=== PATIENT | male | born 1935 | race Caucasian/White ===

== ENCOUNTER 2016-06-21 11:26 | Emergency (ER) | payer MEDICARE ==
[2016-06-21] VITALS (7 sets, daily range): BP systolic 16–139; BP diastolic 53–78; PULSE 81–110; RESP 16–24; O2SAT 89–98
--- NOTE | 2016-06-21 11:32 | ED.REPORT ---
HPI-Dyspnea / Wheezing Date of Service Jun 21, 2016 ED Provider: Christina Cas Patient is a 81 year old male on Warfarin who presents to the ED complaining of increased trouble breathing onset last night. He has a sinus mass but reports that he has had increased trouble breathing through his mouth in addition to his nose. Associated symptoms include feeling flushed, sinus pressure, sinus drainage, and facial pain. He denies cough, chest pain, abdominal pain, or any other symptoms. He was seen in the ED 3 days ago for vertigo. Nursing Notes Stated Complaint: SOB Chief Complaint: Respiratory Complaints Nursing Notes Reviewed: Yes Allergies: Coded Allergies: hydrocodone (Verified Adverse Reaction, Severe, vomiting, 06/21/16) General Time Seen by MD: 11:32 Chief Complaint Shortness of breath Hx Obtained From: Patient Arrived By: Walk-in Onset Occurred: Yesterday Symptom Duration: Since onset Recent Healthcare: Recent doctor visit Past Medical History Past Medical History Notes: [facility]- ENT Past Medical History AAA (he reports stable yearly CT) Nuclear senile cataract Presbyopia IFG Coronary atherosclerosis of unspecified vessel Reports: Hyperlipidemia, Hypertension Reports: Atrial fibrillation Past Surgical History Aortic valve replacement Left inferior parathyroidectomy Hernia repair R hip Smoking History Never Smoker Social History Alcohol Use: Denies alcohol use Drug Use: Denies drug use Ambulatory Status Independent Review of Systems +flushed Ears / Nose / Throat: Reports: Sinus problem (Pressure and drainage ) Respiratory: Reports: Shortness of breath, Denies: Non-productive cough Cardiovascular: Denies: Chest pain Complete sys rev & neg: except as marked. GI: Denies: Abdominal pain Physical Exam Initial Vital Signs Vital Signs (First) Date Time Temp Pulse Resp B/P Pulse Ox O2 Delivery O2 Flow Rate FiO2 06/21/16 11:31 37.8 110 17 16/78 95 06/21/16 13:52 Room Air Head / Eyes: Atraumatic, Normocephalic Abdomen / GI: Soft, Non-tender Skin: Warm, Dry Neurologic: Alert, Oriented, Nonfocal Psychiatric: Mood/affect normal, Behavior normal, Normal thought content General/Constitutional: Awake, Alert, Well appearing, Well developed Neck: Full range of motion Respiratory / Chest: Atraumatic, Breath sounds NL, Breath sounds = bilat, No respiratory distress Cardiovascular: Heart sounds NL, Peripheral circulation NL Heart Rate / Rhythm: Positive: Tachycardia No extremity edema. Interpretation & Diagnostics Lab Results Interpretation Result Diagram: 06/21/16 1200 06/21/16 1200 Test 06/21/16 12:00 06/21/16 13:45 White Blood Count 17.2th/mm3 (3.8-10.1) Red Blood Count 4.19mil/mm3 (4.40-5.80) Hemoglobin 11.4g/dL (13.8-17.2) Hematocrit 37.4% (41.0-50.0) Mean Corpuscular Volume 89.3fL (81-100) Mean Corpuscular Hemoglobin 27.2pg (27.0-35.0) Mean Corpuscular Hemoglobin Concent 30.5% (32.0-37.0) Red Cell Distribution Width 15.4% (12.3-15.4) Platelet Count 197bil/L (150-400) Neutrophils (%) (Auto) 80.3% (40-74) Lymphocytes (%) (Auto) 6.8% (14-46) Monocytes (%) (Auto) 12.5% (4-12) Eosinophils (%) (Auto) 0% (0-5) Basophils (%) (Auto) 0.1% (0-3) Prothrombin Time 19.0sec (8.1-12.5) Prothromb Time International Ratio 1.76ratio Sodium Level 138mEq/L (134-144) Potassium Level 3.6mEq/L (3.5-5.2) Chloride Level 101mEq/L (97-108) Carbon Dioxide Level 25mmol/L (18-29) Blood Urea Nitrogen 19mg/dL (8-27) Creatinine 0.92mg/dL (0.76-1.27) Estimat Glomerular Filtration Rate 84mL/min (>59) Glucose Level 114mg/dL (60-99) Lactic Acid Level 0.9mmol/L (0.4-2.0) Calcium Level 8.8mg/dL (8.5-10.1) Magnesium Level 2.0mg/dL (1.6-2.6) Total Bilirubin 1.5mg/dL (0.0-1.2) Aspartate Amino Transf (AST/SGOT) 12U/L (0-50) Alanine Aminotransferase (ALT/SGPT) 8U/L (0-44) Alkaline Phosphatase 104U/L (25-160) Troponin T 0.010ug/L (0.0-0.011) Pro-B-Type Natriuretic Peptide 2574pg/mL (0-486) Total Protein 7.5g/dL (6.4-8.4) Albumin 3.5g/dL (3.4-5.0) Procalcitonin < 0.05ng/mL (See Comment) Urine Color Yellow (YELLOW) Urine Appearance Clear (CLEAR,HAZY) Urine pH 6.0 (5.0-8.0) Urine Specific [place] 1.030 (1.003-1.035) Urine Protein 300mg/dL (NEG,TRACE) Urine Glucose (UA) Negativemg/dL (NEGATIVE) Urine Ketones Tracemg/dL (NEGATIVE) Urine Occult Blood Moderate (NEGATIVE) Urine Nitrite Negative (NEGATIVE) Urine Bilirubin Negative (NEGATIVE) Urine Urobilinogen 1.0mg/dL (NORMAL) Urine Leukocyte Esterase Negative (NEGATIVE) Urine RBC 0-2/hpf (0-2) Urine WBC 0-5/hpf (0-5) Urine Epithelial Cells None/hpf (NONE-MOD) Urine Crystals None seen (NONE SEEN) Urine Bacteria Few/hpf (NONE-FEW) Urine Hyaline Casts None/lpf (NONE) Urine Granular Casts None seen (NONE SEEN) Urine Waxy Casts None seen (NONE SEEN) Urine Red Blood Cell Casts None seen (NONE SEEN) Urine White Blood Cell Casts None seen (NONE SEEN) Urine Mucus None seen (None Seen) Urine Trichomonas None seen (NONE SEEN) Urine Yeast None (NONE SEEN) Urinalysis Comment None Urine Culture Reflexed Not indicated ECG Interpretation ECG Interpretation: sinus tachy 98 left axis deviation multiform vintricular premature complexes nonspecific repol abnormality, diffuse leads Time: 12:23 Interpreted by: ED physician X-Ray Chest Interpretation Chest Xray Interpretation: IMPRESSION: No acute cardiopulmonary disease process. Dictated by: Cynthia Alvarenga MD, PhD on 06/21/2016 at 12:07 Approved by: Cynthia Alvarenga MD, PhD on 06/21/2016 at 12:07 View: Portable, 1 view Interpretation / Wet Read by: Interpret - Radiologist Re-Eval/Medical Decision Med Decision/Clinical Course Likely infectious, no obvious pneumonia seems the source is his sinus. He is given a dose of Augmentin currently awaiting CAT scan of the face and discussion with ENT. Patient care is transferred to Dr. Godinez. Re-Evaluation/Progress : Time of Eval: 13:32 )( Re-Eval Resp / Chest: No respiratory distress Re-Evaluation/Progress Note: Rechecked patient. He clarified that his symptoms are more sinus pressure making it difficult to breathe rather than shortness of breath. Discharge & Departure Shift Change Sign-Out Patient Care Transferred: Yes Discussed Complaint(s): Yes Transferred care to Dr. Godinez at 1500 Impression: Primary Impression: Sinusitis Referrals: Roberto Kaba MD (PCP) Care Transferred to: [facility] Transferred at: 15:00 Scribe Attestation Portions of this note were transcribed by Luci Garcia. I, Dr. Vasquez personally performed the history, physical exam and medical decision-making; I reviewed and confirmed the accuracy of the information in the transcribed note. Signed by: Luci Garcia 06/21/16, 1501 copies to: Roberto Kaba MD, Timothy S DO Jun 21, 2016 11:32 LUCI GARCIA Jun 21, 2016 12:03
--- NOTE | 2016-06-21 12:09 | DRSVH ---
PROCEDURE: X-RAY CHEST ONE VIEW, PORTABLE ([id number]) INDICATIONS: SOB TECHNIQUE: One view of the chest was acquired. COMPARISON: [facility], , CHEST 1VW (PORTABLE), 10/12/2006, 13:57. FINDINGS: Surgical changes and devices: CABG procedure. Lungs and pleura: No pleural effusions or pneumothorax. Lungs are clear. Mediastinum: Mediastinal contours appear normal. Heart size is normal. Bones and chest wall: No suspicious bony lesions. Overlying soft tissues appear unremarkable. IMPRESSION: No acute cardiopulmonary disease process. Dictated by: Cynthia Alvarenga MD, PhD on 06/21/2016 at 12:07 Approved by: Cynthia Alvarenga MD, PhD on 06/21/2016 at 12:07
[2016-06-21 13:00] LABS: INR 1.76 ratio
[2016-06-21 13:04] LABS: BASOPHILS % (AUTO) 0.1 % (0-3); EOSINOPHILS % (AUTO) 0 % (0-5); MONOCYTES % (AUTO) 12.5 % (4-12); Mean Corpuscular Hemoglobin 27.2 pg (27.0-35.0); Mean Corpuscular Volume 89.3 fL (81-100); NEUTROPHILS % (AUTO) 80.3 % (40-74); Platelet Count 197 bil/L (150-400)
[2016-06-21 13:22] LABS: TROPONIN T 0.01 ug/L (0.0-0.011)
[2016-06-21] MEDS ORDERED: Amoxicillin-Clav 875-125 mg Tablet PO ONE (14:35)
[2016-06-21 14:49] LABS: APPEARANCE,URINE CLEAR (CLEAR,HAZY); COLOR,URINE YELLOW (YELLOW)
[2016-06-21 14:52] LABS: OCCULT BLOOD,URINE MODERATE (NEGATIVE)
--- NOTE | 2016-06-21 15:36 | DRSVH ---
PROCEDURE: CT FACE WITH CONTRAST ([id number]) INDICATIONS: facial pain, discharge 17k wbc TECHNIQUE: After the administration of intravenous contrast, 3.0 mm axial sections acquired from the mid-neck to the frontal sinuses, with coronal reformatting. For radiation dose reduction, the following was use d: automated exposure control. COMPARISON: None. FINDINGS: Image quality: Image quality limited by patient motion. Soft tissues: No edema, masses, or fluid collections. No enlarged lymph nodes. Vascular: Visualized vascular structures appear patent throughout. Atherosclerotic ossifications not ed in the carotid arteries bilaterally. Bony vascular foramina and canals appear normal. Bones: Facial bones appear intact, without fractures, erosions, or destruction. Visualized portions of the skull base and auditory canals also appear normal. Sinuses: The left maxillary sinus is opacified. There is expansion of the left maxillary sinus susp icious for underlying left maxillary sinus mucocele. Septum is deviated to the left. Small right ma xillary sinus mucus retention cyst versus polyp is noted. Mastoid air cells are aerated. IMPRESSION: 1. No fracture. 2. Complete opacification of the left maxillary sinus with left maxillary sinus wall expansion. Fin dings may be due to left maxillary sinus mucocele, however underlying infection or neoplastic process can't be excluded by imaging alone. Recommend ENT consultation. 3. No abscess. The 4. Image quality limited by patient motion. Dictated by: Cynthia Alvarenga MD, PhD on 06/21/2016 at 15:35 Approved by: Cynthia Alvarenga MD, PhD on 06/21/2016 at 15:35
[2016-06-21] MEDS ORDERED: AMOX-366 PO (16:33)
--- NOTE | 2016-06-22 09:39 | PCM.EDPN ---
ED Note Date of Service Jun 22, 2016 called at home on 06/22/16 regarding 1 of 2 positive blood cultures. pt states that he is feeling much better. Denies any new fevers. Confirms that he will follow-up with ENT tomorrow as planned. Return precautions once again stressed. Cas Vasquez DO Jun 22, 2016 09:39
== END 2016-06-21 16:33 | disposition home or self-care (01) ==
LOC: SED 11:26
DX: J32.9 Chronic sinusitis, unspecified (principal); R06.02 Shortness of breath; E78.5 Hyperlipidemia, unspecified; I10 Essential (primary) hypertension; I48.91 Unspecified atrial fibrillation; Z79.01 Long term (current) use of anticoagulants
CPT/HCPCS: 36415; 70487; 71010; 80053; 81000; 82308; 83605; 83735; 83880; 84484; 85025; 85610; 87040; 87077; 87184; 87186; 87804; 99285; Q9967